=== PATIENT | male | born 1985 | race Caucasian/White ===

== ENCOUNTER → 2016-09-21 | Outpatient (CLI) | payer OTHER ==
[~2016-09-21] MED LIST: ALPR-411 PO; HYDR-4079 PO
--- NOTE | 2016-09-21 12:18 | DIAGNOSTIC IMAGING REPORT ---
LEFT UPPER EXT JOINT WITHOUT CLINICAL HISTORY: 31 years-old Male presenting with left shoulder pain, prior surgery on the left shoulder, concern for rotator cuff tear. TECHNIQUE: Multisequence, multiplanar MR imaging of the left shoulder was performed without the use of intravenous contrast. IV contrast: None. COMPARISON: Outside study from 03/24/2013. FINDINGS: Localizer images: Unremarkable. No bony edema. Mild superior subluxation of the humeral head relative to the glenoid. Articular cartilage intact. The long head of the biceps tendon is not seated within the intertubercular groove. Foci of susceptibility noted along the anterior superior labrum near the long head of the biceps labral complex. Evidence of pinning of the long head of the biceps tendon at the proximal humeral diaphysis. Remaining portion of the labrum intact. Normal signal intensity of the musculature. Increased intrasubstance signal intensity of the footplate of the supraspinatus and infraspinatus tendons without evidence of partial tear. Teres minor tendon intact. Postsurgical changes of the transverse ligament portion of the subscapularis tendon. No significant joint effusion. No fluid within the subacromial subdeltoid bursa. Acromioclavicular joint normal. IMPRESSION: 1. Postsurgical changes of tenodesis of the long head of the biceps. 2. Increased intrasubstance signal intensity in the footplate of the supraspinatus and infraspinatus tendons likely suggests degenerative change. No evidence of partial tear. Electronically signed by: Juaquin Crisostomo M.D. 09/21/2016 12:17 PM Dictated Date/Time: 09/21/2016 12:06 PM
--- NOTE | 2016-09-21 12:25 | DIAGNOSTIC IMAGING REPORT ---
CERVICAL WITHOUT CONTRAST CLINICAL HISTORY: 31 years-old Male presenting with pain, cervical disc disorder. TECHNIQUE: Multisequence, multiplanar MR imaging of the cervical spine was performed without the use of intravenous contrast. IV contrast: None. COMPARISON: CT from 08/27/2014. FINDINGS: Localizer images: Unremarkable. Straightening of normal cervical lordosis. Vertebral bodies maintain normal height and bone marrow signal intensity. Intervertebral disc desiccation noted from C2-3 through C5-6, although disc height is maintained. Small disc osteophyte complexes noted at these levels, further described below: C2-3: Minimal disc osteophyte complex without evidence of neural foraminal or spinal canal narrowing. C3-4: Small disc osteophyte complex and right uncovertebral hypertrophy without significant spinal canal or neural foraminal narrowing. C4-5: Small disc osteophyte complex and uncovertebral hypertrophy with mild left neural foraminal narrowing. No significant spinal canal narrowing. C5-6: Small disc osteophyte complex and uncovertebral hypertrophy with mild, right greater than left, neural foraminal narrowing. No significant spinal canal narrowing. C6-7: Normal. C7-T1: Normal. Spinal cord maintains normal morphology and signal intensity. Craniocervical junction normal. No paraspinal soft tissue edema or prevertebral soft tissue swelling. No epidural collection. IMPRESSION: Mild multilevel degenerative changes with mild left neural foraminal narrowing at C4-5 and mild bilateral neural foraminal narrowing at C5-6. No significant spinal canal narrowing. Electronically signed by: Juaquin Crisostomo M.D. 09/21/2016 12:24 PM Dictated Date/Time: 09/21/2016 12:18 PM
== END | disposition home or self-care (01) ==
LOC: C.MRI 10:44
DX: M75.100 Unspecified rotator cuff tear or rupture of unspecified shoulder, not specified as traumatic (principal); M50.10 Cervical disc disorder with radiculopathy, unspecified cervical region; M99.71 Connective tissue and disc stenosis of intervertebral foramina of cervical region

== ENCOUNTER 2017-09-19 19:44 | Emergency (ER) | payer OTHER ==
[~2017-09-19] VITALS: Ht 182.9 cm; Wt 76.2 kg
[2017-09-19 19:48] VITALS: TEMP 36.6; Ht 182.9 cm; Wt 76.2 kg
[2017-09-19] MEDS ORDERED: OXYC-57 PO (20:28)
--- NOTE | 2017-09-19 20:40 | DIAGNOSTIC IMAGING REPORT ---
L TOE(S) MIN 2 VIEWS CLINICAL HISTORY: Left great toe pain following injury. COMPARISON: None FINDINGS: Alignment of the left great toe is anatomic. There is soft tissue swelling. Note is made of a 3 mm subchondral lucency within the left first metatarsal head. There is minimal osteophytosis of the left first metatarsophalangeal joint. IMPRESSION: 1. No acute fracture or dislocation of the left great toe. 2. 3 mm subchondral lucency within the left first metatarsal head which favors an osteochondral abnormality. This finding is not acute. Electronically signed by: Ahsan Barrett M.D. 09/19/2017 8:38 PM Dictated Date/Time: 09/19/2017 8:36 PM
[2017-09-19] MEDS ORDERED: COLCHICINE 0.6 MG TAB PO ONE (21:00)
[2017-09-19 21:24] VITALS: BP 150/94; PULSE 75; O2SAT 99
[2017-09-19] MEDS ORDERED: INDO75CA PO (21:27)
[2017-09-19] MEDS ORDERED: INDOMETHACIN 25 MG CAP PO ONE (21:30)
[2017-09-19 22:03] LABS: BASO % 0.2 %; BASO ABS # 0.03 K/uL (0-0.2); EOS % 1.7 %; EOS ABS # 0.22 K/uL (0-0.5); HEMATOCRIT 48.9 % (42-52); HEMOGLOBIN 16.2 g/dL (14.0-18.0); IG# 0.03 K/uL (0.00-0.02); LYMPH % 12.5 %; LYMPH ABS # 1.65 K/uL (1.2-3.4); MEAN CORPUSCULAR HEMOGLOBIN 28.8 pg (25-34); MEAN CORPUSCULAR HGB CONC 33.1 g/dl (32-36); MEAN PLATELET VOLUME 13.3 fL (7.4-10.4); MONO % 5.2 %; MONO ABS # 0.69 K/uL (0.11-0.59); NEUT % 80.2 %; NEUT ABS # 10.55 K/uL (1.4-6.5); PLATELET COUNT 252 K/uL (130-400); RED CELL DISTRIBUTION WIDTH CV 13.6 % (11.5-14.5); WHITE BLOOD COUNT 13.17 K/uL (4.8-10.8)
[2017-09-19 22:21] LABS: CALCIUM 9.6 mg/dl (8.5-10.1); CREATININE 0.76 mg/dl (0.60-1.40); POTASSIUM 3.9 mmol/L (3.5-5.1); URIC ACID 3.4 mg/dl (2.6-7.2)
--- NOTE | 2017-09-19 23:26 | EMERGENCY ROOM VISIT NOTE ---
History First contact with patient: 20:03 Chief Complaint: FOOT PAIN Stated Complaint: PAIN IN LEFT FOOT History of Present Illness The patient is a 32 year old male who presents to the Emergency Room with complaints of left foot pain. The patient reports that he developed pain day morning, and started to notice redness at the base of his great toe today. The patient reports that he does sleep walk, and cannot rule out the possibility of an injury to the toe. He has been wrapping the foot. He rates his discomfort a 6 out of 10. He denies any pain extending into the ankle or leg. Review of Systems 10 system review was performed and was negative except for pertinent positives and negatives as indicated in history of present illness Past Medical/Surgical History Medical Problems: (1) Cervical Disc Disorder W Radiculopathy, Unsp Cervical Region (2) Esophageal Reflux (3) Sepsis (4) Tobacco Use Disorder Family History No significant family history Social History Smoking Status: Current Every Day Smoker Drug Use: none Marital Status: Housing Status: lives with family Occupation Status: employed Current/Historical Medications Scheduled Indomethacin Ext Rel (Indocin Ext Rel), 75 MG PO BID Scheduled PRN Oxycodone/Acetaminophen 5MG/325MG (Percocet 5MG/325MG), 1 TABLET PO DAILY PRN for p Physical Exam Vital Signs Date Time Temp Pulse Resp B/P (MAP) Pulse Ox O2 Delivery O2 Flow Rate FiO2 09/19/17 21:24 75 18 150/94 99 09/19/17 19:48 36.6 64 18 131/62 98 Room Air Physical Exam CONSTITUTIONAL: Healthy and well nourished. Alert and oriented X 3 with positive affect. Patient does not appear in any acute distress. HEENT: Normocephalic, atraumatic. Pupils equal, round and reactive. NECK: Full active range of motion without discomfort. MUSCULOSKELETAL: Examination of the left foot shows erythema and mild edema about the first MTP joint. It is warm to palpation, and pain is worsened with passive range of motion. The patient has no tenderness to palpation of the remainder of the foot. No proximal lymphangitic streaking. Pedal pulses are intact with capillary refill of the toes less than 2 seconds. INTEGUMENTARY: No rash or other significant dermatologic conditions noted. NEUROLOGIC: No focal neurologic deficits noted. Medical Decision & Procedures ER Provider Diagnostic Interpretation: My interpretation of left great toe x-rays does not show any obvious erosion of the first MTP joint. Radiologist does make note of a 3 mm subchondral lucency within the left first metatarsal head, with mild osteophytosis of the first MTP joint. No fractures or dislocation noted. Radiologist report is as follows: L TOE(S) MIN 2 VIEWS CLINICAL HISTORY: Left great toe pain following injury. COMPARISON: None FINDINGS: Alignment of the left great toe is anatomic. There is soft tissue swelling. Note is made of a 3 mm subchondral lucency within the left first metatarsal head. There is minimal osteophytosis of the left first metatarsophalangeal joint. IMPRESSION: 1. No acute fracture or dislocation of the left great toe. 2. 3 mm subchondral lucency within the left first metatarsal head which favors an osteochondral abnormality. This finding is not acute. Laboratory Results 09/19/17 21:38 Red Blood Count 5.62, Mean Corpuscular Volume 87.0, Mean Corpuscular Hemoglobin 28.8, Mean Corpuscular Hemoglobin Concent 33.1, Mean Platelet Volume 13.3, Neutrophils (%) (Auto) 80.2, Lymphocytes (%) (Auto) 12.5, Monocytes (%) (Auto) 5.2, Eosinophils (%) (Auto) 1.7, Basophils (%) (Auto) 0.2, Neutrophils # (Auto) 10.55, Lymphocytes # (Auto) 1.65, Monocytes # (Auto) 0.69, Eosinophils # (Auto) 0.22, Basophils # (Auto) 0.03 09/19/17 21:38 Test 09/19/17 21:38 White Blood Count 13.17 K/uL (4.8-10.8) Red Blood Count 5.62 M/uL (4.7-6.1) Hemoglobin 16.2 g/dL (14.0-18.0) Hematocrit 48.9 % (42-52) Mean Corpuscular Volume 87.0 fL (80-100) Mean Corpuscular Hemoglobin 28.8 pg (25-34) Mean Corpuscular Hemoglobin Concent 33.1 g/dl (32-36) Platelet Count 252 K/uL (130-400) Mean Platelet Volume 13.3 fL (7.4-10.4) Neutrophils (%) (Auto) 80.2 % Lymphocytes (%) (Auto) 12.5 % Monocytes (%) (Auto) 5.2 % Eosinophils (%) (Auto) 1.7 % Basophils (%) (Auto) 0.2 % Neutrophils # (Auto) 10.55 K/uL (1.4-6.5) Lymphocytes # (Auto) 1.65 K/uL (1.2-3.4) Monocytes # (Auto) 0.69 K/uL (0.11-0.59) Eosinophils # (Auto) 0.22 K/uL (0-0.5) Basophils # (Auto) 0.03 K/uL (0-0.2) RDW Standard Deviation 43.0 fL (36.4-46.3) RDW Coefficient of Variation 13.6 % (11.5-14.5) Immature Granulocyte % (Auto) 0.2 % Immature Granulocyte # (Auto) 0.03 K/uL (0.00-0.02) Erythrocyte Sedimentation Rate 9 mm/hr (0-14) Anion Gap 4.0 mmol/L (3-11) Est Creatinine Clear Calc Drug Dose 150.4 ml/min Estimated GFR () 139.9 Estimated GFR (Non- 120.7 BUN/Creatinine Ratio 7.5 (10-20) Uric Acid 3.4 mg/dl (2.6-7.2) Calcium Level 9.6 mg/dl (8.5-10.1) C-Reactive Protein 0.62 mg/dl (0-0.29) The above labs were reviewed, showing a mild leukocytosis. Sed rate is normal. CRP is elevated. Uric acid level is normal. Medications Administered Medications (Trade) Dose Ordered Sig/Lore Route Start Time Stop Time Status Last Admin Dose Admin Colchicine (Colchicine Tab) 1.8 mg NOW ONCE PO 09/19/17 21:00 09/19/17 21:05 DC 09/19/17 21:23 1.8 MG Indomethacin (Indocin Cap) 75 mg NOW ONCE PO 09/19/17 21:30 09/19/17 21:31 DC 09/19/17 21:38 75 MG ED Course Patient history and physical exam were performed. Nurse's notes were reviewed. Vital signs were reviewed and were normal. Initial x-rays of the great toe does not show any acute fracture or dislocation. He does have some osteophytosis of the first MTP joint. Clinical exam is concerning for possible gout. The patient reports that his grandfather has a history of gout. I did elect to perform some basic lab work, showing a leukocytosis. Uric acid level is normal, although it may have already normalized. The patient has no skin changes over this region to suggest cellulitis, therefore I elected to treat the patient empirically as gout. The patient was administered colchicine 1.2 mg , and was provided an additional colchicine 0.6 mg to take home to be taken in 1 hour. I then started to discuss treatment with Indocin. I asked the patient if he has any history of GI intolerability to NSAIDs. He reports that NSAIDs tear up his stomach. He wanted to know if he could have something for the pain. When I asked if he has other pain medications at home, he reports that his family doctor is trying to wean him off of pain medications. Review of the [place] Prescription Drug Monitoring Program shows that the patient just received a prescription for Oxy /, dispense #15 on 09/17/17. He was also getting monthly prescription refills for opioids from his family doctor. The patient was advised that I would not provide any additional prescription analgesics. He kept arguing and bickering about me not willing to provide anything stronger for his pain. The patient was advised that he must discuss further pain management options with his PCP, and would not receive any further prescription opioids. As I was completing his discharge paperwork and prescriptions, his nurse came back to tell me that if I am not providing any additional pain medications for him, he would like to try taking indomethacin as I recommended on my initial discussion with the patient. He was administered Indocin 75 mg in the emergency department, and provided a prescription for Indocin 75 mg twice daily. The patient was also dispensed crutches to minimize weightbearing. He was instructed to follow-up with his PCP to review labs and to discuss further treatment options. The patient was disgruntled at the time of discharge, and rated his pain an 8 out of 10 at the time of discharge. Medical Decision See previous section. Clinical examination is certainly consistent with gout. I do not suspect intra-articular infection. The patient has no skin skin changes to suggest cellulitis. X-rays do not show any evidence for fracture or dislocation. [place] Drug Monitoring Program Search Results: patient reviewed within database, see additional documentation Medication Reconcilliation Current Medication List: was personally reviewed by me Blood Pressure Screening Patient's blood pressure: Normal blood pressure Impression Primary Impression: Left foot pain Departure Information Prescriptions Indomethacin Ext Rel (Indocin Ext Rel) 75 Mg Capcr 75 MG PO BID for 5 Days, #10 CAP Prov: Fei Avalos PA 09/19/17 Referrals No Doctor, Assigned (PCP) Patient Instructions My [facility]
== END 2017-09-19 21:44 | disposition home or self-care (01) ==
LOC: C.EDB 19:45 → C.EDD 21:44
DX: M79.672 Pain in left foot (principal); F17.200 Nicotine dependence, unspecified, uncomplicated

== ENCOUNTER 2019-03-22 21:25 | Inpatient (IN) ==
[2019-03-22 21:56] LABS: Appearance Urine Clear (Clear); Bilirubin Urine Negative (Negative); Blood Urine Negative (Negative); Color Urine Yellow; Glucose Urine UA Negative (Negative); Ketones Urine Negative (Negative); Leukocyte Esterase Urine Negative (Negative); Nitrite Urine Negative (Negative); Protein Urine Negative (Negative); Specific Gravity Urine 1.003 (1.000-1.030); Urobilinogen Urine Negative (Negative); pH Urine 7.5 (4.5-7.5)
[2019-03-22 22:14] LABS: Basophils # (auto) 0.04 K/uL (0-0.2); Basophils % (auto) 0.4 %; Eosinophils # (auto) 0.53 K/uL (0-0.5); Eosinophils % (auto) 5.1 %; Hematocrit (blood only) 41.8 % (42-52); Hemoglobin 14.4 g/dL (14.0-18.0); Immature Granulocytes # (auto) 0.02 K/uL (0.00-0.02); Immature Granulocytes % (auto) 0.2 %; Lymphocytes # (auto) 2.67 K/uL (1.2-3.4); Lymphocytes % (auto) 25.7 %; Mean Corpuscular Hemoglobin 29.1 pg (25-34); Mean Corpuscular Hgb Conc 34.4 g/dL (32-36); Mean Corpuscular Volume 84.4 fL (80-100); Mean Platelet Volume 11.7 fL (7.4-10.4); Monocytes # (auto) 0.87 K/uL (0.11-0.59); Monocytes % (auto) 8.4 %; Neutrophils # (auto) 6.27 K/uL (1.4-6.5); Neutrophils % (auto) 60.2 %; Platelet Count 254 K/uL (130-400); RDW Coefficient of Variation 13.9 % (11.5-14.5); RDW Standard Deviation 43.1 fL (36.4-46.3); Red Blood Count 4.95 M/uL (4.7-6.1)
[2019-03-22 22:16] LABS: Amphetamines+Metham, Urine Neg (Neg); Barbiturates, Urine Neg (Neg); Benzodiazepine, Urine Neg (Neg); Cocaine, Urine Neg (Neg); MDMA (Ecstacy), Urine Neg (Neg); Methadone, Urine Neg (Neg); Opiate, Urine Neg (Neg); Phencyclidine, Urine Neg (Neg)
[2019-03-22 22:28] LABS: Albumin Level 4.1 gm/dl (3.4-5.0); BUN Creatinine Ratio 18.5 (10-20); Calcium 8.9 mg/dl (8.5-10.1); Est GFR (African American) 133.3; Potassium 4.1 mmol/L (3.5-5.1)
[2019-03-22 22:30] LABS: Salicylate 3.3 mg/dl (2.8-20)
[2019-03-22 22:38] LABS: Albumin Globulin Ratio 1.2 (0.9-2); Bilirubin,Total 0.2 mg/dl (0.2-1); Globulin 3.4 gm/dl (2.5-4.0); Thyroid Stimulating Hormone 2.36 uIu/ml (0.300-4.500); Total Protein 7.5 gm/dl (6.4-8.2)
[2019-03-22] MEDS ORDERED: LORazepam 1 MG TAB SL STA (23:28)
--- NOTE | 2019-03-23 01:17 | Emergency Department Note ---
Entered by Jennifer Hu acting as a scribe for Yasmany Wang MD History of Present Illness General Chief complaint: Mental Health Evaluation Stated complaint: 302 Time Seen by Provider: 03/22/19 22:17 Source: patient, family and RN notes reviewed Mode of arrival: ambulatory Limitations: no limitations History of Present Illness Onset (ago): day(s) 1 Location: head Radiation: non-radiation Pain Consistency: + constant Maximum Pain Intensity: 7 Relieved By: + none Exacerbated By: + other (Fight with , ran out of medications) Treatments prior to arrival: none The patient is a 33 year old female who presents to the Emergency Room with complaints of needing a mental health evaluation. He is here on a 302 warrant from the [place] [employer]. Case Management states he was holding a gun earlier and threatening to harm himself. He also showed pictures of his gun to others. His became concerned and called police. The patient reports he and his had a fight earlier because he "caught her in a lie" and she left their home with their children. He went on a walk in order to "clear his head" due to a history of PTSD. He then called his father to pick him up, and states he heard his called police because she was concerned about him. The patient states he did take pictures of his gun but did not threaten to do anything. He does see a counselor for depression and takes Prozac and Seroquel. He notes he recently ran out of his medications and needs to make an appointment to see his doctor. Home Medications Home Medications Medication Instructions Recorded Confirmed Type fluoxetine 60 mg PO QAM 30 Days #30 tab 03/27/19 Rx hydroxyzine HCl 50 mg PO HSZ PRN 30 Days #30 tab 03/27/19 Rx lamotrigine [Lamictal] 25 mg PO QAM 30 Days #59 tab 03/27/19 Rx nicotine 1 patch TD DAILY 30 Days #1 box 03/27/19 Rx nicotine (polacrilex) [Nicorelief] 2 mg MT PRN PRN 30 Days #1 box 03/27/19 Rx nicotine [Nicoderm CQ] 21 mg TRANSDERMAL QAM 30 Days #1 03/27/19 Rx box quetiapine 400 mg PO HS 30 Days #30 tab 03/27/19 Rx Allergies Allergy/AdvReac Type Severity Reaction Status Date / Time pseudoephedrine Allergy Mild UNKNOWN Verified 03/22/19 22:11 Past Med/Surg History Medical History (Updated 03/30/19 @ 07:24 by Yasmany Wang MD) Bone spur of foot Concussion Dehydration Gout (Acute) Left foot pain Mood disorder Nodule of left lung Pharyngitis Pneumonia involving right lung Sepsis Sinus infection Sore throat Surgical History H/O shoulder surgery Family History Other Gout Social History Preferred Language: Tajik Communication Ability: Effective Physical Scientist Required: No Beliefs That Will Affect Care: None Feels Safe at Home: Yes Smoking Status: Current every day smoker Tobacco Type: cigarettes ; Review of Systems See HPI for pertinent positives & negatives. and A total of 10 systems reviewed and were otherwise negative Physical Exam Vital Signs Vital Signs - 24 hr 03/22/19 21:29 Temperature 37.1 C Temperature Source Oral Pulse Rate 86 Respiratory Rate 20 Blood Pressure 132/86 Blood Pressure Mean 101 Blood Pressure Position Sitting Pulse Oximetry 94 Sepsis Recent Fever Within 48 Hours No Sepsis New/Unexplained Change in Mental Status No Sepsis Action Taken by Nursing No Action Required GENERAL: Awake, alert, beligerent-appearing, in no acute distress HENT: Normocephalic, atraumatic. Oropharynx unremarkable. EYES: Normal conjunctiva. Sclera non-icteric. NECK: Supple. No nuchal rigidity. FROM. No JVD. RESPIRATORY: Clear to auscultation. CARDIAC: Regular rate, normal rhythm. Extremities warm and well perfused. Pulses equal. ABDOMEN: Soft, non-distended. No tenderness to palpation. No rebound or guarding. No masses. RECTAL: Deferred. MUSCULOSKELETAL: Chest examination reveals no tenderness. The back is symmetrical on inspection without obvious abnormality. There is no CVA tenderness to palpation. No joint edema. LOWER EXTREMITIES: Calves are equal size bilaterally and non-tender. No edema. No discoloration. NEURO: Normal sensorium. No sensory or motor deficits noted. SKIN: No rash or jaundice noted. PSYCHIATRIC: Course Course 2259: The patient was evaluated in room A7. A complete history and physical were performed. 0015: Psychiatric Case Management informed me the patient would like to sign in and is admitting to suicidal ideations. The patient will be medically cleared. Administered Medications Discontinued Medications [facility]) [facility] [place] [place]: 04/22/19 08:59 Last Admin: 03/27/19 08:38 Dose: 60 mg Documented by: [id number] Admin: 03/26/19 08:29 Dose: 60 mg Documented by: [id number] Admin: 03/25/19 08:37 Dose: 60 mg Documented by: [id number] Admin: 03/24/19 09:31 Dose: 60 mg Documented by: [id number] Admin: 03/23/19 08:56 Dose: 60 mg Documented by: [id number] Hydroxyzine HCl (Vistaril) 50 mg PO HSZ PRN PRN Reason: Insomnia Stop: 04/22/19 02:23 Last Admin: 03/26/19 21:42 Dose: 50 mg Documented by: [id number] Admin: 03/25/19 21:06 Dose: 50 mg Documented by: [id number] Admin: 03/24/19 22:13 Dose: 50 mg Documented by: [id number] Lamotrigine (Lamictal) 25 mg PO [facility] Stop: 04/24/19 08:59 Last Admin: 03/27/19 08:37 Dose: 25 mg Documented by: [id number] Admin: 03/26/19 08:29 Dose: 25 mg Documented by: [id number] Admin: 03/25/19 08:37 Dose: 25 mg Documented by: [id number] Lamotrigine (Lamictal) 12.5 mg PO ONE ONE Stop: 03/24/19 16:31 Last Admin: 03/24/19 17:26 Dose: 12.5 mg Documented by: [id number] Lorazepam (Ativan) 2 mg SL NOW STA Stop: 03/22/19 23:29 Last Admin: 03/22/19 23:33 Dose: 2 mg Documented by: [id number] Miscellaneous (Remove Nicoderm Patch) 1 ea N/A [id number] [facility] Stop: 04/22/19 08:58 Last Admin: 03/27/19 07:29 Dose: Not Given Documented by: [id number] Admin: 03/26/19 08:32 Dose: Not Given Documented by: [id number] Admin: 03/25/19 08:37 Dose: 1 ea Documented by: [id number] Admin: 03/24/19 09:31 Dose: 1 ea Documented by: [id number] Admin: 03/23/19 09:03 Dose: 1 ea Documented by: [id number] Nicotine (Nicoderm Cq) 21 mg TD QAM RACHELLE Stop: 04/22/19 08:59 Last Admin: 03/27/19 07:27 Dose: 21 mg Documented by: [id number] Admin: 03/26/19 08:32 Dose: 21 mg Documented by: [id number] Admin: 03/25/19 08:37 Dose: 21 mg Documented by: [id number] Admin: 03/24/19 09:32 Dose: 21 mg Documented by: [id number] Admin: 03/23/19 08:57 Dose: 21 mg Documented by: [id number] Nicotine Polacrilex (Nicorette 2mg) 1 piece MT PRN PRN PRN Reason: Nicotine Withdrawal Stop: 04/22/19 02:23 Last Admin: 03/27/19 08:51 Dose: 1 piece Documented by: [id number] Admin: 03/27/19 07:27 Dose: 1 piece Documented by: [id number] Admin: 03/26/19 21:16 Dose: 1 piece Documented by: [id number] Admin: 03/26/19 17:46 Dose: 1 piece Documented by: [id number] Admin: 03/26/19 13:07 Dose: 1 piece Documented by: [id number] Admin: 03/26/19 11:00 Dose: 1 piece Documented by: [id number] Admin: 03/26/19 09:02 Dose: 1 piece Documented by: [id number] Admin: 03/25/19 20:37 Dose: 1 piece Documented by: [id number] Admin: 03/25/19 17:51 Dose: 1 piece Documented by: [id number] Admin: 03/25/19 13:13 Dose: 1 piece Documented by: [id number] Admin: 03/25/19 10:14 Dose: 1 piece Documented by: [id number] Admin: 03/24/19 20:01 Dose: 1 piece Documented by: [id number] Admin: 03/24/19 17:42 Dose: 1 piece Documented by: [id number] Admin: 03/24/19 15:28 Dose: 1 piece Documented by: [id number] Admin: 03/24/19 13:16 Dose: 1 piece Documented by: [id number] Admin: 03/24/19 09:33 Dose: 1 piece Documented by: [id number] Admin: 03/23/19 21:34 Dose: 1 piece Documented by: [id number] Quetiapine Fumarate (Seroquel) 400 mg PO NOW STA Stop: 03/23/19 01:39 Last Admin: 03/23/19 01:57 Dose: 400 mg Documented by: [id number] Quetiapine Fumarate (Seroquel) 400 mg PO HS RACHELLE Stop: 04/22/19 20:59 Last Admin: 03/26/19 21:15 Dose: 400 mg Documented by: [id number] Admin: 03/25/19 21:06 Dose: 400 mg Documented by: [id number] Admin: 03/24/19 21:14 Dose: 400 mg Documented by: [id number] Admin: 03/23/19 21:04 Dose: 400 mg Documented by: [id number] Medical Decision Making Differential Diagnosis Differential diagnoses considered include mood disorder, infection, hypoglycemia, electrolyte abnormalities, cardiac sources, intracerebral event, toxicologic, neurologic, as well as others. Medical Records Attestation: I reviewed the patient's medical records. Home Medications Current Medication List: was personally reviewed by me Laboratory Data Attestation: I reviewed the patient's lab results. Result diagrams: 03/22/19 21:56 03/22/19 21:56 Lab Results 03/22/19 03/22/19 03/22/19 Range/Units 21:47 21:47 21:56 WBC 10.40 (4.8-10.8) K/uL RBC 4.95 (4.7-6.1) M/uL Hgb 14.4 (14.0-18.0) g/dL Hct 41.8 L (42-52) % MCV 84.4 (80-100) fL MCH 29.1 (25-34) pg MCHC 34.4 (32-36) g/dL RDW Std Deviation 43.1 (36.4-46.3) fL RDW Coeff of Vinh 13.9 (11.5-14.5) % Plt Count 254 (130-400) K/uL MPV 11.7 H (7.4-10.4) fL Immature Gran % (Auto) 0.2 % Neut % (Auto) 60.2 % Lymph % (Auto) 25.7 % [place] % (Auto) 8.4 % Eos % (Auto) 5.1 % Baso % (Auto) 0.4 % Immature Gran # (Auto) 0.02 (0.00-0.02) K/uL Neut # (Auto) 6.27 (1.4-6.5) K/uL Lymph # (Auto) 2.67 (1.2-3.4) K/uL [place] # (Auto) 0.87 H (0.11-0.59) K/uL Eos # (Auto) 0.53 H (0-0.5) K/uL Baso # (Auto) 0.04 (0-0.2) K/uL Sodium (136-145) mmol/L Potassium (3.5-5.1) mmol/L Chloride (98-107) mmol/L Carbon Dioxide (21-32) mmol/L Anion Gap (3-11) BUN (7-18) mg/dl Creatinine (0.6-1.4) mg/dl Est Cr Clr Drug Dosing ml/min Est GFR ( Amer) Est GFR (Non-Af Amer) BUN/Creatinine Ratio (10-20) Glucose (70-99) mg/dl Calcium (8.5-10.1) mg/dl Total Bilirubin (0.2-1) mg/dl AST (15-37) U/L ALT (12-78) U/L Alkaline Phosphatase (45-117) U/L Total Protein (6.4-8.2) gm/dl Albumin (3.4-5.0) gm/dl Globulin (2.5-4.0) gm/dl Albumin/Globulin Ratio (0.9-2) TSH (0.300-4.500) uIu/ml Urine Color Yellow Urine Appearance Clear (Clear) Urine pH 7.5 (4.5-7.5) Ur Specific [place] 1.003 (1.000-1.030) Urine Protein Negative (Negative) Urine Glucose (UA) Negative (Negative) Urine Ketones Negative (Negative) Urine Blood Negative (Negative) Urine Nitrite Negative (Negative) Urine Bilirubin Negative (Negative) Urine Urobilinogen Negative (Negative) Ur Leukocyte Esterase Negative (Negative) Salicylates (2.8-20) mg/dl Urine Opiates Screen Neg (Neg) Ur Methadone, Qual Neg (Neg) Acetaminophen (10-30) ug/ml Urine Barbiturates Neg (Neg) Ur Phencyclidine (PCP) Neg (Neg) U Amphetamin/Meth Scrn Neg (Neg) MDMA (Ecstasy) Screen Neg (Neg) U Benzodiazepines Scrn Neg (Neg) Ur Cocaine Metabolite Neg (Neg) U Marijuana (THC) Screen Neg (Neg) Ethyl Alcohol mg/dL (0-3) mg/dl 03/22/19 03/22/19 03/22/19 Range/Units 21:56 21:56 21:56 WBC (4.8-10.8) K/uL RBC (4.7-6.1) M/uL Hgb (14.0-18.0) g/dL Hct (42-52) % MCV (80-100) fL MCH (25-34) pg MCHC (32-36) g/dL RDW Std Deviation (36.4-46.3) fL RDW Coeff of Vinh (11.5-14.5) % Plt Count (130-400) K/uL MPV (7.4-10.4) fL Immature Gran % (Auto) % Neut % (Auto) % Lymph % (Auto) % [place] % (Auto) % Eos % (Auto) % Baso % (Auto) % Immature Gran # (Auto) (0.00-0.02) K/uL Neut # (Auto) (1.4-6.5) K/uL Lymph # (Auto) (1.2-3.4) K/uL [place] # (Auto) (0.11-0.59) K/uL Eos # (Auto) (0-0.5) K/uL Baso # (Auto) (0-0.2) K/uL Sodium 138 (136-145) mmol/L Potassium 4.1 (3.5-5.1) mmol/L Chloride 106 (98-107) mmol/L Carbon Dioxide 25 (21-32) mmol/L Anion Gap 7.0 (3-11) BUN 16 (7-18) mg/dl Creatinine 0.84 (0.6-1.4) mg/dl Est Cr Clr Drug Dosing 121.0 ml/min Est GFR ( Amer) 133.3 Est GFR (Non-Af Amer) 115.0 BUN/Creatinine Ratio 18.5 (10-20) Glucose 89 (70-99) mg/dl Calcium 8.9 (8.5-10.1) mg/dl Total Bilirubin 0.2 (0.2-1) mg/dl AST 16 (15-37) U/L ALT 18 (12-78) U/L Alkaline Phosphatase 99 (45-117) U/L Total Protein 7.5 (6.4-8.2) gm/dl Albumin 4.1 (3.4-5.0) gm/dl Globulin 3.4 (2.5-4.0) gm/dl Albumin/Globulin Ratio 1.2 (0.9-2) TSH 2.360 (0.300-4.500) uIu/ml Urine Color Urine Appearance (Clear) Urine pH (4.5-7.5) Ur Specific [place] (1.000-1.030) Urine Protein (Negative) Urine Glucose (UA) (Negative) Urine Ketones (Negative) Urine Blood (Negative) Urine Nitrite (Negative) Urine Bilirubin (Negative) Urine Urobilinogen (Negative) Ur Leukocyte Esterase (Negative) Salicylates 3.3 (2.8-20) mg/dl Urine Opiates Screen (Neg) Ur Methadone, Qual (Neg) Acetaminophen 8 L (10-30) ug/ml Urine Barbiturates (Neg) Ur Phencyclidine (PCP) (Neg) U Amphetamin/Meth Scrn (Neg) MDMA (Ecstasy) Screen (Neg) U Benzodiazepines Scrn (Neg) Ur Cocaine Metabolite (Neg) U Marijuana (THC) Screen (Neg) Ethyl Alcohol mg/dL < 3.0 (0-3) mg/dl MDM Narrative This is a 33-year-old male who presents emergency department over concerns that he is going to hurt himself. Patient is belligerent upon arrival here. He was medically cleared by me. He was independently evaluated by psychiatric case management and was subsequently admitted to 3 . Impression & Plan Mood disorder Discharge Plan Visit Data *Final* Discharge Date/Time: 03/23/19 02:49 Chief Complaint: Mental Health Evaluation Stated Complaint: 302 ED Provider: Yasmany Wang Discharge Problem: Mood disorder Patient Disposition: Admitted As Inpatient Condition: Fair Discharge Instructions Interventions: ED Discharge Assessment Last Done: 03/23/19 02:49 The scribe's documentation has been prepared under my direction and personally reviewed by me in its entirety. I confirm that the note above accurately reflects all work, treatment, procedures, and medical decision making performed by me.
[2019-03-23] MEDS ORDERED: QUETIAPINE FUMARATE 200 MG TAB PO STA (01:38)
[2019-03-23] MEDS ORDERED: BISMUTH SUBSALICYLATE PER ML OMNICELL CHARGE PO PRN (02:24)
[2019-03-23] MEDS ORDERED: ACETAMINOPHEN 325 MG TAB PO PRN (02:24)
[2019-03-23] MEDS ORDERED: SODIUM CHLORIDE 0.65% NA SOLN 45 ML (OCEAN) PRN (02:24)
[2019-03-23] MEDS ORDERED: MAGNESIUM HYDROXIDE SUSP 30 ML UDC PO PRN (02:24)
[2019-03-23] MEDS ORDERED: ALUMINUM/MAGNESIUM SUSP 30 ML UDC PO PRN (02:24)
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
[2019-03-23] MEDS: FLUOXETINE HCL 20 MG CAP PO SCH (08:56)
[2019-03-23] MEDS: NICOTINE 21 MG/24 HR TDSY TD SCH (08:57)
[2019-03-23] MEDS ORDERED: FLUOXETINE HCL 20 MG CAP PO SCH (09:00)
[2019-03-23] MEDS: QUETIAPINE FUMARATE 200 MG TAB PO SCH (21:04)
[2019-03-23] MEDS: NICOTINE POLACRILEX 2 MG GUM MT PRN (21:34)
[2019-03-24 08:35] LABS: Glucose Fasting 92 mg/dl (70-99)
[2019-03-24 08:40] LABS: Chol HDL Ratio 6; Cholesterol 234 mg/dl (0-200); HDL Cholesterol 39 mg/dl; LDL Cholesterol Calculated 168 mg/dl; Triglycerides 133 mg/dl (0-150); VLDL Cholesterol 27 mg/dl
[2019-03-24] MEDS: FLUOXETINE HCL 20 MG CAP PO SCH (09:31)
[2019-03-24] MEDS: NICOTINE 21 MG/24 HR TDSY TD SCH (09:32)
[2019-03-24] MEDS: NICOTINE POLACRILEX 2 MG GUM MT PRN ×5 (09:33→20:01)
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
[2019-03-24] MEDS ORDERED: lamoTRIgine 25 MG TAB PO ONE (16:30)
[2019-03-24] MEDS: QUETIAPINE FUMARATE 200 MG TAB PO SCH (21:14)
[2019-03-25] MEDS: lamoTRIgine 25 MG TAB PO SCH (08:37)
[2019-03-25] MEDS: FLUOXETINE HCL 20 MG CAP PO SCH (08:37)
[2019-03-25] MEDS: NICOTINE 21 MG/24 HR TDSY TD SCH (08:37)
[2019-03-25] MEDS: NICOTINE POLACRILEX 2 MG GUM MT PRN ×4 (10:14→20:37)
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
[2019-03-25] MEDS: QUETIAPINE FUMARATE 200 MG TAB PO SCH (21:06)
[2019-03-26] MEDS: FLUOXETINE HCL 20 MG CAP PO SCH (08:29)
[2019-03-26] MEDS: lamoTRIgine 25 MG TAB PO SCH (08:29)
[2019-03-26] MEDS: NICOTINE 21 MG/24 HR TDSY TD SCH (08:32)
[2019-03-26] MEDS: NICOTINE POLACRILEX 2 MG GUM MT PRN ×5 (09:02→21:16)
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
[2019-03-26] MEDS: QUETIAPINE FUMARATE 200 MG TAB PO SCH (21:15)
[2019-03-27] MEDS: NICOTINE 21 MG/24 HR TDSY TD SCH (07:27)
[2019-03-27] MEDS: NICOTINE POLACRILEX 2 MG GUM MT PRN ×2 (07:27→08:51)
[2019-03-27] MEDS: lamoTRIgine 25 MG TAB PO SCH (08:37)
[2019-03-27] MEDS: FLUOXETINE HCL 20 MG CAP PO SCH (08:38)
--- NOTE | 2019-03-27 11:27 | Discharge Summary ---
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 information to your appointments. WHO TO CALL AND WHEN: Medical Emergencies: For questions or emergencies related to your hospital stay, please contact the Inpatient Behavioral Health Unit at [phone]. A slot key person is on-call 31/08 for the Behavioral Health Unit for emergencies At any time you feel your situation is an emergency, you may also call 911 immediately. Your Discharge Instructions noted above were prepared by provider Kym Espinoza PA-C. Pending Studies at Discharge: No Stand-Alone Forms: [facility], Smoking Cessation, Suicide Prev ention Resources Medications and DC Order Prescriptions: New nicotine (polacrilex) [Nicorelief] 2 mg Gum 2 mg MT PRN PRN (Reason: nicotine cravings) 30 Days Qty: 1 RF: 0 hydroxyzine HCl 50 mg tablet 50 mg PO HSZ PRN (Reason: insomnia) 30 Days Qty: 30 RF: 0 lamotrigine [Lamictal] 25 mg Tablet 25 mg PO QAM 30 Days Qty: 59 RF: 0 nicotine 21 mg/24 hr patch 24 hour 1 patch TD DAILY 30 Days Qty: 1 RF: 0 fluoxetine 60 mg tablet 60 mg PO QAM 30 Days Qty: 30 RF: 0 quetiapine 400 mg tablet 400 mg PO HS 30 Days Qty: 30 RF: 0 nicotine [Nicoderm CQ] 21 mg/24 hr Patch 24 Hour 21 mg transdermal QAM 30 Days Qty: 1 RF: 0 Discontinued fluoxetine 40 mg capsule 40 mg PO QAM RF: 0 fluoxetine 20 mg capsule 20 mg PO QAM RF: 0 quetiapine 400 mg tablet 400 mg PO QPM RF: 0 Discharge Orders: Discharge Order (Routine); Ordered 03/27/19 Ordered By: Kym Espinoza Admission Data Admit Date/Time: 03/23/19 02:24 Attending Provider: Essie Millard Admit Provider: Chastity Jack Primary Care Provider: PCP,NO Other Interventions: Discharge Summary Assessment (RN) Last Done: 03/27/19 09:01 PSY Interdisciplinary Discharge Planning Last Done: 03/27/19 11:40 DC Date/Time DO NOT enter until pt leaves facility: 03/27/19 12:14 Coding Level of Care Code 69960 D/C day mgmt > 30 min Diagnoses Mood disorder F39 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
== END 2019-03-27 12:14 | disposition home or self-care (01) | DRG 885 ==
LOC: ED 21:25 → 3S 03-23 02:24